=== PATIENT | female | born 1960 | race African-American/Black ===

== ENCOUNTER 2018-12-25 13:32 | Emergency (ER) | payer OTHER ==
[2018-12-25 13:37] VITALS: BP 123/85; PULSE 74; TEMP 97.8; BMI 25.8
--- NOTE | 2018-12-25 13:49 | PDOC ---
History of Present Illness - General Chief Complaint: Injury Stated Complaint: INJURY Time Seen by Provider: 12/25/18 13:43 - History of Present Illness Initial Comments: 12/25/18 13:48 58-year-old female without comorbidities presents for evaluation of right fifth toe pain after hitting her toe on a file cabinet this occurred 4 days ago Past History - Past Medical History Allergies/Adverse Reactions: Allergies Allergy/AdvReac Type Severity Reaction Status Date / Time No Known Allergies Allergy Verified 12/25/18 13:37 Home Medications: Ambulatory Orders NK [No Known Home Medication] 12/25/18 COPD: No Diabetes: Yes - Surgical History Abdominal Surgery: Yes Cholecystectomy: Yes - Immunization History Immunization Up to Date: No - Suicide/Smoking/Psychosocial Hx Smoking Status: Yes Smoking History: Never smoked Number of Cigarettes Smoked Daily: 0 Cigars Per Day: 0 Hx Alcohol Use: No Review of Systems - Review of Systems Musculoskeletal: Yes: See HPI *Physical Exam - Vital Signs Last Vital Signs Temp Pulse Resp BP Pulse Ox 97.8 F 74 18 123/85 97 12/25/18 13:35 12/25/18 13:35 12/25/18 13:35 12/25/18 13:35 12/25/18 13:35 - Physical Exam Comments: 12/25/18 13:48 Mild swelling right fifth toe tenderness without gross sensorimotor deficits Medical Decision Making - Medical Decision Making 12/25/18 14:12 X-ray show a fracture at the proximal phalanx of the fifth toe of the right foot. Valdemar tape Hard sole shoe and crutches weight-bear as tolerated follow-up with orthopedic 12/25/18 14:12 *DC/Admit/Observation/Transfer Diagnosis at time of Disposition: Fracture, toe - Discharge Dispostion Disposition: HOME Condition at time of disposition: Stable Decision to Admit order: No - Referrals Referrals: Live Sparks MD [Primary Care Provider] - Marquez Corona DO [Staff Physician] - - Patient Instructions Printed Discharge Instructions: Toe Fracture, DI for Toe Fracture Additional Instructions: You may weight-bear as tolerated with the Mcgregor shoe and crutches. Please keep the toe valdemar tape. Follow-up with orthopedic surgery in 1-2 days for further evaluation and treatment options. Tylenol and Motrin as directed for pain and return to the emergency room should symptoms worsen. - Post Discharge Activity
== END 2018-12-25 14:47 | disposition home or self-care (01) ==
LOC: JERFT 13:32
DX: S92.514A Nondisplaced fracture of proximal phalanx of right lesser toe(s), initial encounter for closed fracture (principal); W22.03XA Walked into furniture, initial encounter; Y93.01 Activity, walking, marching and hiking; Y92.89 Other specified places as the place of occurrence of the external cause; Y99.8 Other external cause status
CPT/HCPCS: 73660-TC-FY; 99281-25

== ENCOUNTER 2019-05-10 05:21 | Day surgery (SDC) | payer OTHER ==
[2019-05-08 11:58] VITALS: BMI 26.2
[2019-05-10] MEDS ORDERED: oxyCODONE HCL 5 MG TABLET PO PRN ×2 (10:21)
[2019-05-10] MEDS ORDERED: ONDANSETRON 4 MG/2 ML VIAL IVPUSH PRN (10:21)
[2019-05-10] MEDS ORDERED: LACTATED RINGERS SOLUTION 1,000 ML IV SCH (10:30)
[2019-05-10] MEDS ORDERED: MIDAZOLAM HCL 2 MG/2 ML SINGLE DOSE VIAL ONE (10:48)
[2019-05-10] MEDS ORDERED: PROPOFOL 20 ML ONE (10:48)
[2019-05-10] MEDS ORDERED: FERRIC SUBSULFATE 500 ML BOTTLE TP ONE (11:00)
[2019-05-10] MEDS ORDERED: LIDOCAINE HCL/PF 2% SDV 5ML VIAL ONE (11:05)
[2019-05-10] MEDS ORDERED: IBUPROFEN 600 MG TABLET (FP) PO PRN (11:34)
[2019-05-10] MEDS ORDERED: ACETAMINOPHEN 325 MG TABLET (FP) PO PRN (11:34)
--- NOTE | 2019-05-10 11:35 | HP ---
History & Physical Update - History History: No Change - Physical Physical: No Change - Assessment Assessment: No Change - Plan Plan: No Change (Agree with H&P from 05/05/19, for cervical polypectomy)
--- NOTE | 2019-05-10 11:36 | OP ---
Operative Note - Note: Operative Date: 05/10/19 Pre-Operative Diagnosis: cervical polyp Findings: ectocervical sessile polyp Surgeon: Flor Worthington Anesthesiologist/MANAGER MERCHANDISE: Kathrine Patel Anesthesia: General Specimens Removed: cervical polyp Estimated Blood Loss (mls): 3 Operative Report Dictated: Yes
[2019-05-10] MEDS ORDERED: KETOROLAC TROMETHAMINE 30 MG/1 ML VIAL ONE (11:54)
[2019-05-10] MEDS ORDERED: KETOROLAC TROMETHAMINE 30 MG/1 ML VIAL IVPUSH ONE (12:03)
[2019-05-10 14:24] VITALS: BP 131/81; PULSE 70; TEMP 98.1
--- NOTE | 2019-05-11 06:31 | OP ---
DATE OF OPERATION: 05/10/2019 PREOPERATIVE DIAGNOSIS: Cervical polyp. POSTOPERATIVE DIAGNOSIS: Cervical polyp. PROCEDURE: Cervical polypectomy. SURGEON: Flor Worthington DO ANESTHESIA: General by Dr. Kathrine Patel. ESTIMATED BLOOD LOSS: 3 mL. COMPLICATIONS: None. SPECIMEN: Cervical polyp. COUNTS: Sponge and instrument count correct. DISPOSITION: Stable to PACU. BRIEF HISTORY AND PROCEDURE: Patient is a 58-year-old female who was seen in the office, was noted to have a cervical polyp which was unable to be removed in the office secondary to a very wide base as it was a sessile polyp. The patient was counseled on options and elected to undergo removal of polyp in the operating room. She was admitted to [facility] on May 10, 2019, for the procedure. Consents for the procedure were reconfirmed upon her admission. She was then taken back to the operating room, given general anesthesia, placed in the dorsal lithotomy position and a hard timeout was performed. A plastic speculum was placed inside the vagina. Using a large LEEP loop the cervical polyp was removed in a single pass and sent to Pathology for permanent evaluation. The base of the cervical polyp at this point was hemostatic. Rollerball cautery was used to achieve excellent hemostasis. All instruments were removed from the surgical field and minimal bleeding was noted from the cervix. Sponge, needle and instrument count was reported to be correct. Patient tolerated procedure well, recovering in stable condition in the PACU after the procedure. FLOR WORTHINGTON DO /[id number] MTDD
--- NOTE | 2019-05-18 11:30 | PATH ---
Surgical Pathology Report Patient Name: MADELIN MENENDEZ Med. Rec. #: [id number] /Age/Gender: 1960 (Age: 58) / F Account: [id number] Location: [facility] SURGICAL Taken: 05/10/2019 Received: 05/10/2019 Reported: 05/16/2019 Physicians: Flor Worthington M.D. Specimen(s) Received CERVICAL POLYP Clinical History Cervical polyp Final Diagnosis CERVICAL POLYP, POLYPECTOMY: ENDOCERVICAL POLYP. Electronically Signed Sonia Mi M.D. Gross Description Received in formalin, labeled "cervical polyp" is a 1 x 0.8 x 0.3 cm portion of light mcknight, polypoid tissue. Entirely submitted in one cassette. AE/05/12/2019 ebram/05/12/2019
== END 2019-05-10 14:24 | disposition home or self-care (01) ==
LOC: JASU-SURG 05:21
PROVIDERS: ATTEND Obstetrics & Gynecology
PROC: 0UBC7ZZ Excision of Cervix, Via Natural or Artificial Opening (ICD-10-PCS; principal; 2019-05-10 10:30)
DX: N84.1 Polyp of cervix uteri (principal)
CPT/HCPCS: 82962; 88305-TC; 94760

== ENCOUNTER 2019-08-04 14:37 | Emergency (ER) | payer BC ==
[2019-08-04 14:44] VITALS: TEMP 98; BMI 24.5
[2019-08-04] MEDS ORDERED: SODIUM CHLORIDE 1,000 ML IV STA (14:45)
--- NOTE | 2019-08-04 14:45 | PDOC ---
Rapid Medical Evaluation Medical Evaluation: Allergies Allergy/AdvReac Type Severity Reaction Status Date / Time No Known Allergies Allergy Verified 05/10/19 09:47 I have performed a brief in-person evaluation of this patient. The patient presents with a chief complaint of: Sent by PCP for sugar of 588; denies chest pain, abdominal pain, vomiting; got 10 units of insulin in the PCP office; has been taking Jentadueto (linagliptin and metformin XR) x 2 weeks as insurance was not approving of the Janumet she took Pertinent physical exam findings: In NAD I have ordered the following: Labs The patient will proceed to the ED for further evaluation. 08/04/19 14:41
[2019-08-04 15:38] LABS: BASO % 0.9 % (0-2.0); EOS % 0.7 % (0-4.5); HEMATOCRIT 41.7 % (32.4-45.2); HEMOGLOBIN 14.1 GM/dL (10.7-15.3); LYMPH % 31.4 % (8-40); MCH 30.6 pg (25.7-33.7); MCHC 33.7 g/dl (32.0-36.0); MEAN CELL VOLUME 90.7 fl (80-96); MEAN PLT VOLUME 9.2 fl (7.5-11.1); MONO % 7.7 % (3.8-10.2); NEUT % 59.3 % (42.8-82.8); PLATELET COUNT 147 K/MM3 (134-434); RBC 4.59 M/mm3 (3.60-5.2); RDW 13.8 % (11.6-15.6); WHITE BLOOD COUNT 7.3 K/mm3 (4.0-10.0)
--- NOTE | 2019-08-04 15:48 | PDOC ---
Attending Attestation - Resident Resident Name: Vladimir Ramírez - ED Attending Attestation I have performed the following: I have examined & evaluated the patient, The case was reviewed & discussed with the resident, I agree w/resident's findings & plan, Exceptions are as noted - HPI HPI: 08/04/19 16:10 Ms. beauchamp is a 59-year-old female, history of [id number]-yncnxswzk diabetes, hypertension She presents from her primary care physician's office due to a fingerstick of over 500. Patient states that over the past month she is been unable to take her standard oral hypoglycemics on account of insurance issues. She was restarted on Jentadueto a few days ago (she previously was taking Janumet but this was not approved by her insurance). Since then, patient reports that she has had blurry vision, increased p.o. intake, increased urination Patient denies fevers, chills, cough. Patient denies chest pain, shortness of breath, palpitations. Patient was seen by her primary care physician who did a fingerstick and noted blood glucose of 588. She was given 10 units insulin subcu and sent to the emergency department PMH: DMT2, HTN SurgHx: judy Meds: Folic Acid 1 mg PO DAILY 05/08/19 Losartan Potassium [Cozaar -] 25 mg PO DAILY 05/08/19 Sitagliptin Phos/Metformin HCl [Janumet Xr 50-1,000 mg Tablet] 1 each PO DAILY 05/08/19 - Physicial Exam PE: 08/04/19 15:48 GENERAL: The patient is in no acute distress. ENT: Ears normal, nares patent, oropharynx clear without exudates. Moist mucous membranes. No tonsillar enlargement, no exudates NECK: Normal range of motion, supple, no nuchal rigidity (+) LAD LUNGS: Breath sounds equal, clear to auscultation bilaterally. No wheezes, and no crackles. HEART:Regular rate and rhythm, normal S1 and S2 without murmur, rub or gallop. ABDOMEN: Soft, nontender, normoactive bowel sounds. EXTREMITIES: Normal range of motion, no edema. NEUROLOGICAL: Cranial nerves II through XII grossly intact. Normal speech. No focal neurological deficits. SKIN: Warm, Dry, normal turgor, no rashes or lesions noted. - Medical Decision Making 08/04/19 16:12 Laboratory Tests 08/04/19 08/04/19 15:26 15:26 WBC 7.3 Hgb 14.1 Hct 41.7 D Plt Count 147 Beta-Hydroxybutyrate 1.[address] Celaya We will put patient on metformin twice daily and add glyburide Patient has already an appointment on Wednesday to follow-up with Dr. Celaya (in 3 days) Patient asked to monitor her blood sugar Return to the ER for symptoms consistent with hyperglycemia-thirst, blurry vision, polyuria, polydipsia Clinical impression: Uncontrolled diabetes, initial presentation Hyperglycemia, initial presentation
--- NOTE | 2019-08-04 15:53 | PDOC ---
History of Present Illness - General Chief Complaint: Blood Sugar Problem Stated Complaint: SENT BY PCP/HIGH BLOOD SUGAR Time Seen by Provider: 08/04/19 14:41 - History of Present Illness Initial Comments: Ms. Bianchi is a 59 y/o female with PMH significant for DMT2 and HTN, sent in by PCP for high blood glucose. Reports that she has not been able to take her DM medications over the past month due to insurance. She was recently restarted on Jentadueto a few days ago. Reports that she has had blurry vision, increased PO intake, and increased urination over the past week. Denies chest pain/headache/dizziness/nausea/vomiting/abdominal pain/leg swelling /shortness of breath. Has not been in DKA before. No recent illness. Has not used insulin before. PMH: DMT2, HTN SurgHx: judy Past History - Past Medical History Allergies/Adverse Reactions: Allergies Allergy/AdvReac Type Severity Reaction Status Date / Time No Known Allergies Allergy Verified 08/04/19 14:44 Home Medications: Ambulatory Orders Folic Acid 1 mg PO DAILY 05/08/19 Losartan Potassium [Cozaar -] 25 mg PO DAILY 05/08/19 Sitagliptin Phos/Metformin HCl [Janumet Xr 50-1,000 mg Tablet] 1 each PO BID Glipizide 5 mg PO DAILY 7 Days #7 tablet 08/04/19 Metformin HCl [Glucophage] 1,000 mg PO BID 7 Days #14 tablet 08/04/19 Sitagliptin Phos/Metformin HCl [Janumet 50-1,000 mg Tablet] 1 each PO BID 7 Days #14 tablet 08/04/19 COPD: No Diabetes: Yes - Surgical History Abdominal Surgery: Yes Cholecystectomy: Yes - Immunization History Immunization Up to Date: No - Psycho Social/Smoking Cessation Hx Smoking Status: Yes Smoking History: Never smoked Have you smoked in the past 12 months: No Number of Cigarettes Smoked Daily: 0 If you are a former smoker, when did you quit?: about 20 years ago Cigars Per Day: 0 Hx Alcohol Use: Yes (social) Drug/Substance Use Hx: (hookha at times) Review of Systems - Review of Systems Comments:: GENERAL/CONSTITUTIONAL: No fever or chills. No weakness._ HEAD, EYES, EARS, NOSE AND THROAT: Reports blurry vision. No change in hearing. No sore throat._ CARDIOVASCULAR: No chest pain or shortness of breath_ RESPIRATORY: Denies cough, hemoptysis_ GASTROINTESTINAL: No nausea, vomiting, diarrhea or constipation._ GENITOURINARY: No dysuria. Reports increased fluid intake and urination. MUSCULOSKELETAL: No joint or muscle swelling or pain. No neck or back pain._ SKIN: No rash_ NEUROLOGIC: No headache, vertigo, loss of consciousness, or change in strength/ sensation. No dizziness. ENDOCRINE: No increased thirst. No abnormal weight change_ HEMATOLOGIC/LYMPHATIC: No anemia, easy bleeding, or history of blood clots._ ALLERGIC/IMMUNOLOGIC: No hives or skin allergy._ *Physical Exam - Vital Signs Last Vital Signs Temp Pulse Resp BP Pulse Ox 98 F 81 18 150/84 97 08/04/19 14:39 08/04/19 14:39 08/04/19 14:39 08/04/19 14:39 08/04/19 14:39 - Physical Exam Comments: GENERAL: Awake, alert, and oriented to person/place/time, in no acute distress_ HEAD: No signs of trauma, normocephalic, atraumatic _ EYES: PERRLA, EOMI, sclera anicteric, conjunctiva clear_ ENT: Hearing grossly normal, nares patent, oropharynx clear without exudates. No uvular deviation. Moist mucosa_ NECK: Normal ROM, supple, no lymphadenopathy, JVD, or masses_ LUNGS: No distress, speaks in full sentences, clear to auscultation bilaterally _ HEART: Regular rate and rhythm, normal S1 and S2, no murmurs appreciated, peripheral pulses normal and equal bilaterally._ ABDOMEN: Soft, nontender, normoactive bowel sounds. No guarding, no rebound. No masses_ EXTREMITIES: Normal inspection, Normal range of motion, no edema. No clubbing or cyanosis_ NEUROLOGICAL: Cranial nerves II through XII grossly intact. Normal speech, normal gait, no focal sensorimotor deficits _ SKIN: Warm, Dry, normal turgor, no rashes or lesions noted_ ED Treatment Course - LABORATORY CBC & Chemistry Diagram: 08/04/19 15:26 08/04/19 15:26 - ADDITIONAL ORDERS Additional order review: 08/04/19 15:26 RBC 4.59 MCV 90.7 MCHC 33.7 RDW 13.8 MPV 9.2 Neutrophils % 59.3 Lymphocytes % 31.4 Monocytes % 7.7 Eosinophils % 0.7 Basophils % 0.9 Medical Decision Making - Medical Decision Making 08/04/19 15:51 59F DMT2 presenting with increased PO intake, urination, blurry vision over the past week. Sent in by PCP for blood glucose in the 500's. -cbc, cmp, beta hydroxybutyrate, fingerstick glucose -fluids 08/04/19 1530 Labs reviewed. Anion gap < 6. Glucose elevated at 307. Beta-hydroxybutyrate 1.5. Based on clinical evaluation and lab values patient does not appear to be in DKA or HHS. Laboratory Tests 08/04/19 08/04/19 08/04/19 15:26 15:26 15:26 WBC 7.3 RBC 4.59 Hgb 14.1 Hct 41.7 D MCV 90.7 MCH 30.6 MCHC 33.7 RDW 13.8 Plt Count 147 MPV 9.2 Absolute Neuts (auto) 4.4 Neutrophils % 59.3 Lymphocytes % 31.4 Monocytes % 7.7 Eosinophils % 0.7 Basophils % 0.9 Nucleated RBC % 0 Sodium 133 L Potassium 4.1 Chloride 100 Carbon Dioxide 28 Anion Gap 6 L BUN 9.6 Creatinine 0.8 Est GFR (CKD-EPI)AfAm 94.85 Est GFR (CKD-EPI)NonAf 81.84 Random Glucose 307 H Calcium 9.6 Total Bilirubin 0.9 AST 25 ALT 30 Alkaline Phosphatase 199 H Total Protein 7.2 Albumin 3.8 Beta-Hydroxybutyrate 1.5 08/04/19 17:44 D/w Dr. Celaya, who agrees patient can be sent home on 5 mg glipizide QD and 1000 mg Metformin BID and f/u in her office next week. Discharge - Discharge Information Problems reviewed: Yes Clinical Impression/Diagnosis: Hyperglycemia Condition: Stable Disposition: HOME - Admission No - Additional Discharge Information Prescriptions: Glipizide 5 mg PO DAILY 7 Days #7 tablet Metformin HCl [Glucophage] 1,000 mg PO BID 7 Days #14 tablet Sitagliptin Phos/Metformin HCl [Janumet 50-1,000 mg Tablet] 1 each PO BID 7 Days #14 tablet - Follow up/Referral Referrals: Live Sparks MD [Primary Care Provider] - Kamila Celaya MD [Staff Physician] - - Patient Discharge Instructions Additional Instructions: Please take Janumet (50-1000) twice per day until you are able to see Dr. Celaya. Please make a follow up appointment with Dr. Celaya next week. If you experience any new, worsening, or concerning symptoms, including headache , abdominal pain, nausea, vomiting, dehydration, or any other concerns, please return to the emergency department. - Post Discharge Activity
[2019-08-04 16:12] LABS: ALBUMIN 3.8 g/dl (3.4-5.0); BILIRUBIN,TOTAL 0.9 mg/dL (0.2-1); BLOOD UREA NITROGEN 9.6 mg/dL (7-18); CALCIUM 9.6 mg/dL (8.5-10.1); CREATININE 0.8 mg/dL (0.55-1.3); POTASSIUM 4.1 mmol/L (3.5-5.1); TOT PROT 7.2 g/dl (6.4-8.2)
[2019-08-04 18:09] VITALS: BP 132/87; PULSE 83
== END 2019-08-04 18:10 | disposition home or self-care (01) ==
LOC: JER 14:37
PROC: 3E0337Z Introduction of Electrolytic and Water Balance Substance into Peripheral Vein, Percutaneous Approach (ICD-10-PCS; principal; 2019-08-04)
DX: E11.65 Type 2 diabetes mellitus with hyperglycemia (principal); Z79.84 Long term (current) use of oral hypoglycemic drugs; I10 Essential (primary) hypertension
CPT/HCPCS: 36415; 80053; 82010; 85025; 99283-25; J7030

== ENCOUNTER 2021-01-23 13:46 | Emergency (ER) | payer OTHER, BC ==
[2021-01-23 14:30] VITALS: BP 130/98; PULSE 80; TEMP 98.3; BMI 25.0
== END 2021-01-23 14:54 | disposition home or self-care (01) ==
LOC: JER 13:46
DX: M94.0 Chondrocostal junction syndrome [Tietze] (principal)
CPT/HCPCS: 71046-TC-FY; 93005; 93010; 99284-25

== ENCOUNTER 2022-07-31 08:37 | Emergency (ER) | payer OTHER ==
[2022-07-31 08:56] VITALS: BP 128/87; PULSE 107; RESP 18; BMI 29.2
[2022-07-31] MEDS ORDERED: IBUPROFEN 600 MG TABLET (FP) PO ONE ×2 (09:30→09:36)
[2022-07-31 11:22] VITALS: TEMP 99.5
== END 2022-07-31 11:22 | disposition home or self-care (01) ==
LOC: JER 08:37
DX: J11.1 Influenza due to unidentified influenza virus with other respiratory manifestations (principal)
CPT/HCPCS: 0241U-QW; 99283-25

== ENCOUNTER 2023-06-26 21:16 | Emergency (ER) | payer OTHER ==
[2023-06-26 21:27] VITALS: BP 137/82; PULSE 75; RESP 20; TEMP 97; BMI 25.8
== END 2023-06-26 22:38 | disposition home or self-care (01) ==
LOC: JERFT 21:16
DX: E11.649 Type 2 diabetes mellitus with hypoglycemia without coma (principal)
CPT/HCPCS: 82962; 99282-25